=== PATIENT | male | born 1965 | race Hispanic/Latino ===

== ENCOUNTER 2023-02-23 23:08 | Inpatient (IN) | payer OTHER ==
[~2023-02-23] VITALS: Ht 182.9 cm; Wt 94.3 kg
[2023-02-23] MEDS ORDERED: NITROGLYCERIN 1GM OINT 1 INCH/1GM TD ONE (23:30)
[2023-02-23] MEDS ORDERED: SOLU-MEDROL 125MG VIAL IVP ONE (23:30)
[2023-02-23] MEDS ORDERED: ASPIRIN 325MG TAB PO ONE (23:30)
[2023-02-23] MEDS ORDERED: ENOXAPARIN SODIUM 100 MG/1 ML SQ ONE (23:30)
[2023-02-23] MEDS ORDERED: 0.9%NACL 1000ML 1,000 ML IV ONE (23:30)
[2023-02-23] MEDS ORDERED: IPRATROPIUM/ALBUTEROL SULFATE 3 ML SOLUTION IH ONE (23:30)
[2023-02-23 23:31] LABS: BASOPHILS % (AUTO) 0.3 % (0.0-5.0); HEMATOCRIT 48.1 % (42-54); LYMPHOCYTES % (AUTO) 6.5 % (21.0-51.0); MEAN CORPUSCULAR HEMOGLOBIN 30.8 pg (27.0-33.0); MEAN CORPUSCULAR HGB CONC 33.3 g/dL (32.0-36.0); MEAN CORPUSCULAR VOLUME 92.5 fL (79-99); MONOCYTES % (AUTO) 12.7 % (3.0-13.0); PLATELET COUNT (AUTO) 242 K/uL (130-400); RED CELL DISTRIBUTION WIDTH 12.9 % (11.0-15.5); WHITE BLOOD COUNT (AUTO) 9.3 K/uL (4.8-10.8)
[2023-02-23] MEDS ORDERED: SOLU-MEDROL 40MG VIAL ONE (23:46)
[2023-02-24 00:18] LABS: ALBUMIN 3.4 g/dL (3.5-5.0); CREATININE 0.8 mg/dL (0.5-1.5); POTASSIUM 4.3 mmol/L (3.5-5.1); TOTAL PROTEIN, SERUM 7.6 g/dL (6.0-8.3)
[2023-02-24 01:11] LABS: ABG BASE EXCESS 1.6 mmol/L (-2.0-3.0); ABG HCO3 30.6 mmol/L (21.0-28.0); ABG OXYGEN SATURATION 96.6 % (95.0-99.0); ABG PCO2 68 mmHg (35-48)
[2023-02-24] MEDS: SOLU-MEDROL 40MG VIAL IVP SCH ×3 (01:46→17:12)
[2023-02-24] MEDS: 0.9%NACL 1000ML 1,000 ML IV SCH ×2 (01:46→20:26)
[2023-02-24] MEDS ORDERED: MAGNESIUM 2GM PREMIX 50ML 50 ML IV PRN (02:00)
[2023-02-24] MEDS ORDERED: MORPHINE 4 MG SYG IV PRN (02:00)
[2023-02-24] MEDS ORDERED: ONDANSETRON 4MG INJ IV PRN (02:00)
[2023-02-24] MEDS ORDERED: POTASSIUM CHLORIDE 20MEQ/100ML 100 ML IV PRN (02:00)
[2023-02-24] MEDS ORDERED: ACETAMINOPHEN 325 MG TAB PO PRN ×3 (02:00→12:00)
[2023-02-24] MEDS ORDERED: MORPHINE 2 MG SYG IV PRN (02:00)
[2023-02-24] MEDS ORDERED: NICOTINE 21 MG/ 24 HR PATCH TD SCH (03:00)
[2023-02-24] MEDS: PHARMACY COMMUNICATION MISC SCH ×2 (03:30→09:30)
[2023-02-24 04:05] LABS: ABG BASE EXCESS 1.6 mmol/L (-2.0-3.0); ABG HCO3 30.4 mmol/L (21.0-28.0); ABG OXYGEN SATURATION 91.7 % (95.0-99.0); ABG PCO2 67 mmHg (35-48)
[2023-02-24] MEDS: DOXYCYCLINE 100MG+NS 250ML IV SCH ×2 (04:06→14:40)
[2023-02-24 04:30] VITALS: BP 146/84
[2023-02-24] MEDS ORDERED: PHARMACY COMMUNICATION MISC SCH (04:30)
[2023-02-24 06:56] LABS: HEMATOCRIT 47.1 % (42-54); LYMPHOCYTES % (AUTO) 4.9 % (21.0-51.0); MEAN CORPUSCULAR HEMOGLOBIN 31.2 pg (27.0-33.0); MEAN CORPUSCULAR HGB CONC 33.3 g/dL (32.0-36.0); MEAN CORPUSCULAR VOLUME 93.6 fL (79-99); MONOCYTES % (AUTO) 1.4 % (3.0-13.0); NEUTROPHILS % (AUTO) 93.1 % (40.0-77.0); PLATELET COUNT (AUTO) 227 K/uL (130-400); RED BLOOD CELL COUNT(AUTO) 5.03 MIL/uL (4.50-6.20); RED CELL DISTRIBUTION WIDTH 12.9 % (11.0-15.5); WHITE BLOOD COUNT (AUTO) 6.5 K/uL (4.8-10.8)
[2023-02-24 07:00] VITALS: BP 143/81
[2023-02-24 07:04] LABS: HEMOGLOBIN A1C 6.3 % (4.0-6.0)
[2023-02-24 07:12] LABS: CREATININE 0.9 mg/dL (0.5-1.5); MAGNESIUM 1.9 mg/dL (1.80-2.40); PHOSPHORUS 3.4 mg/dL (2.5-4.9); POTASSIUM 5.1 mmol/L (3.5-5.1)
[2023-02-24] MEDS: ALBUTEROL 0.083% 2.5 MG/3 ML INH IH SCH ×4 (07:27→23:17)
[2023-02-24] MEDS: FAMOTIDINE 20MG VIAL IV SCH (09:13)
[2023-02-24] MEDS: ENOXAPARIN SODIUM 40 MG/0.4 ML SYRINGE SQ SCH ×2 (09:14→18:55)
[2023-02-24 10:57] LABS: APPEARANCE,URINE CLEAR (CLEAR); BILIRUBIN,URINE NEGATIVE (NEGATIVE); COLOR,URINE LIGHT-YELLOW (YELLOW); GLUCOSE, URINE (UA) NEGATIVE (NEGATIVE); KETONES,URINE NEGATIVE (NEGATIVE); LEUKOCYTE ESTERASE ,URINE NEGATIVE Leu/uL (NEGATIVE); NITRATE,URINE NEGATIVE (NEGATIVE); OCCULT BLOOD,URINE NEGATIVE (NEGATIVE); PROTEIN,URINE 20 mg/dL (NEGATIVE); UROBILINOGEN,URINE 0.2 mg/dL (0.2-1.0)
[2023-02-24 11:00] VITALS: BP 127/75
[2023-02-24 11:04] LABS: AMPHET/METH SCREEN,URINE NEGATIVE (NEGATIVE); BARBITURATE SCREEN, URINE NEGATIVE (NEGATIVE); BENZODIAZEPINES SCREEN,URINE NEGATIVE (NEGATIVE); CANNABINOID SCREEN,URINE NEGATIVE (NEGATIVE); COCAINE SCREEN,URINE NEGATIVE (NEGATIVE); OPIATE SCREEN,URINE NEGATIVE (NEGATIVE); PHENCYCLIDINE SCREEN,URINE NEGATIVE (NEGATIVE)
[2023-02-24 11:10] LABS: SQUAMOUS EPITHELIAL CELL,UR RARE /HPF (0-2); WBC,URINE 0-1 /HPF (0-1)
[2023-02-24] MEDS: CEFTRIAXONE 1G VIAL IVPB SCH (12:12)
[2023-02-24] MEDS ORDERED: IOHEXOL-350 75 ML VIAL IV ONE (13:37)
[2023-02-24 16:00] VITALS: BP 141/70
[2023-02-24 19:15] VITALS: BP 130/70
[2023-02-24] MEDS: INSULIN HUMULIN R 100 UNIT/ML 3ML SQ SCH (20:31)
[2023-02-25 02:15] VITALS: BP 123/68
[2023-02-25] MEDS: DOXYCYCLINE 100MG+NS 250ML IV SCH ×2 (02:28→15:20)
[2023-02-25] MEDS: SOLU-MEDROL 40MG VIAL IVP SCH ×3 (02:28→17:15)
[2023-02-25 03:15] VITALS: BP 140/72
[2023-02-25 03:48] LABS: ABG BASE EXCESS 4.6 mmol/L (-2.0-3.0); ABG HCO3 34.1 mmol/L (21.0-28.0); ABG OXYGEN SATURATION 95.3 % (95.0-99.0); ABG PCO2 74 mmHg (35-48)
[2023-02-25 03:51] LABS: BASOPHILS % (AUTO) 0.2 % (0.0-5.0); HEMATOCRIT 45.8 % (42-54); LYMPHOCYTES % (AUTO) 7.3 % (21.0-51.0); MEAN CORPUSCULAR HEMOGLOBIN 31.1 pg (27.0-33.0); MEAN CORPUSCULAR HGB CONC 31.7 g/dL (32.0-36.0); MEAN CORPUSCULAR VOLUME 98.3 fL (79-99); MONOCYTES % (AUTO) 8.1 % (3.0-13.0); NEUTROPHILS % (AUTO) 83.4 % (40.0-77.0); PLATELET COUNT (AUTO) 223 K/uL (130-400); RED BLOOD CELL COUNT(AUTO) 4.66 MIL/uL (4.50-6.20); RED CELL DISTRIBUTION WIDTH 13.4 % (11.0-15.5); WHITE BLOOD COUNT (AUTO) 9.5 K/uL (4.8-10.8)
[2023-02-25 04:11] LABS: ALBUMIN 2.9 g/dL (3.5-5.0); CREATININE 0.8 mg/dL (0.5-1.5); POTASSIUM 5.5 mmol/L (3.5-5.1); TOTAL PROTEIN, SERUM 6.7 g/dL (6.0-8.3)
[2023-02-25] MEDS: INSULIN HUMULIN R 100 UNIT/ML 3ML SQ SCH ×4 (06:07→21:00)
[2023-02-25] MEDS: ALBUTEROL 0.083% 2.5 MG/3 ML INH IH SCH ×4 (06:37→23:11)
[2023-02-25 08:45] VITALS: BP 149/78
[2023-02-25] MEDS: FAMOTIDINE 20MG VIAL IV SCH (08:48)
[2023-02-25] MEDS: NICOTINE 21 MG/ 24 HR PATCH TD SCH (08:48)
[2023-02-25] MEDS ORDERED: ALBUTEROL 0.083% 2.5 MG/3 ML INH IH ONE (10:49)
[2023-02-25 11:28] VITALS: BP 130/84
[2023-02-25] MEDS: CEFTRIAXONE 1G VIAL IVPB SCH (11:31)
[2023-02-25 17:07] VITALS: BP 163/86
[2023-02-25 19:00] VITALS: BP 136/85
[2023-02-26] VITALS: BP 141/86
[2023-02-26] MEDS: SOLU-MEDROL 40MG VIAL IVP SCH ×3 (02:43→16:33)
[2023-02-26] MEDS: DOXYCYCLINE 100MG+NS 250ML IV SCH ×2 (02:43→15:15)
[2023-02-26 04:12] LABS: ABG BASE EXCESS 9.4 mmol/L (-2.0-3.0); ABG HCO3 39.8 mmol/L (21.0-28.0); ABG OXYGEN SATURATION 97.1 % (95.0-99.0); ABG PCO2 84 mmHg (35-48)
[2023-02-26 04:36] LABS: ALBUMIN 2.9 g/dL (3.5-5.0); CREATININE 0.8 mg/dL (0.5-1.5); POTASSIUM 5.7 mmol/L (3.5-5.1); TOTAL PROTEIN, SERUM 6.7 g/dL (6.0-8.3)
[2023-02-26 04:58] VITALS: BP 151/83
[2023-02-26] MEDS: INSULIN HUMULIN R 100 UNIT/ML 3ML SQ SCH ×4 (06:07→21:35)
[2023-02-26 06:14] LABS: BASOPHILS % (AUTO) 0.2 % (0.0-5.0); HEMATOCRIT 46.5 % (42-54); LYMPHOCYTES % (AUTO) 9.6 % (21.0-51.0); MEAN CORPUSCULAR HEMOGLOBIN 31.6 pg (27.0-33.0); MEAN CORPUSCULAR HGB CONC 31.8 g/dL (32.0-36.0); MEAN CORPUSCULAR VOLUME 99.1 fL (79-99); MONOCYTES % (AUTO) 8.2 % (3.0-13.0); NEUTROPHILS % (AUTO) 81.5 % (40.0-77.0); PLATELET COUNT (AUTO) 262 K/uL (130-400); RED BLOOD CELL COUNT(AUTO) 4.69 MIL/uL (4.50-6.20); RED CELL DISTRIBUTION WIDTH 13.7 % (11.0-15.5); WHITE BLOOD COUNT (AUTO) 13.2 K/uL (4.8-10.8)
[2023-02-26] MEDS: ALBUTEROL 0.083% 2.5 MG/3 ML INH IH SCH ×4 (06:36→23:35)
[2023-02-26] MEDS ORDERED: CALCIUM GLUC 1GM/10ML VIAL IV ONE (07:30)
[2023-02-26] MEDS ORDERED: KAYEXALATE 15GM/60ML PO ONE (07:30)
[2023-02-26 08:15] VITALS: BP 145/76
[2023-02-26] MEDS: FAMOTIDINE 20MG VIAL IV SCH (08:22)
[2023-02-26] MEDS: NICOTINE 21 MG/ 24 HR PATCH TD SCH (08:22)
[2023-02-26] MEDS: ENOXAPARIN SODIUM 40 MG/0.4 ML SYRINGE SQ SCH (08:23)
[2023-02-26] MEDS: CEFTRIAXONE 1G VIAL IVPB SCH (11:56)
[2023-02-26 12:01] VITALS: BP 122/74
[2023-02-26 16:28] VITALS: BP 119/68
[2023-02-26 19:40] VITALS: BP 130/69
[2023-02-27 00:30] VITALS: BP 127/70
[2023-02-27] MEDS: DOXYCYCLINE 100MG+NS 250ML IV SCH ×2 (02:54→18:37)
[2023-02-27] MEDS: SOLU-MEDROL 40MG VIAL IVP SCH ×2 (02:54→09:09)
[2023-02-27 03:38] LABS: HEMATOCRIT 44.5 % (42-54); MEAN CORPUSCULAR HEMOGLOBIN 31.4 pg (27.0-33.0); MEAN CORPUSCULAR VOLUME 101.1 fL (79-99); PLATELET COUNT (AUTO) 249 K/uL (130-400); RED CELL DISTRIBUTION WIDTH 13.7 % (11.0-15.5); WHITE BLOOD COUNT (AUTO) 14.5 K/uL (4.8-10.8)
[2023-02-27 03:47] LABS: ALBUMIN 2.7 g/dL (3.5-5.0); CREATININE 0.8 mg/dL (0.5-1.5); MAGNESIUM 2.1 mg/dL (1.80-2.40); POTASSIUM 4.5 mmol/L (3.5-5.1); TOTAL PROTEIN, SERUM 6.2 g/dL (6.0-8.3)
[2023-02-27 04:11] LABS: ABG BASE EXCESS 11.5 mmol/L (-2.0-3.0); ABG HCO3 41.6 mmol/L (21.0-28.0); ABG OXYGEN SATURATION 95.2 % (95.0-99.0); ABG PCO2 82 mmHg (35-48)
[2023-02-27 04:45] VITALS: BP 141/79
[2023-02-27] MEDS: INSULIN HUMULIN R 100 UNIT/ML 3ML SQ SCH ×4 (06:48→21:00)
[2023-02-27] MEDS: ALBUTEROL 0.083% 2.5 MG/3 ML INH IH SCH ×4 (06:52→23:25)
[2023-02-27 08:14] VITALS: BP 142/81
[2023-02-27] MEDS: NICOTINE 21 MG/ 24 HR PATCH TD SCH (09:09)
[2023-02-27] MEDS: FAMOTIDINE 20MG VIAL IV SCH (09:10)
[2023-02-27] MEDS: ENOXAPARIN SODIUM 40 MG/0.4 ML SYRINGE SQ SCH (09:10)
[2023-02-27 12:46] VITALS: BP 143/83
[2023-02-27] MEDS: CEFTRIAXONE 1G VIAL IVPB SCH (13:30)
[2023-02-27 16:00] VITALS: BP 154/86
[2023-02-27 20:00] VITALS: BP 166/85
[2023-02-27] MEDS ORDERED: SOLU-MEDROL 40MG VIAL IVP SCH (21:00)
[2023-02-28] VITALS: BP 156/76
[2023-02-28] MEDS: DOXYCYCLINE 100MG+NS 250ML IV SCH (03:54)
[2023-02-28 04:00] VITALS: BP 163/82
[2023-02-28 04:18] LABS: HEMATOCRIT 45.1 % (42-54); MEAN CORPUSCULAR HEMOGLOBIN 30.9 pg (27.0-33.0); MEAN CORPUSCULAR HGB CONC 31.3 g/dL (32.0-36.0); MEAN CORPUSCULAR VOLUME 98.7 fL (79-99); RED BLOOD CELL COUNT(AUTO) 4.57 MIL/uL (4.50-6.20); RED CELL DISTRIBUTION WIDTH 13.5 % (11.0-15.5); WHITE BLOOD COUNT (AUTO) 13.1 K/uL (4.8-10.8)
[2023-02-28 04:32] LABS: ALBUMIN 2.6 g/dL (3.5-5.0); CREATININE 0.8 mg/dL (0.5-1.5); POTASSIUM 4.6 mmol/L (3.5-5.1)
[2023-02-28] MEDS: ALBUTEROL 0.083% 2.5 MG/3 ML INH IH SCH (06:43)
[2023-02-28 08:00] VITALS: BP 146/80
== END 2023-02-28 09:20 | disposition left against medical advice (07) | DRG 193 ==
LOC: EDH 23:08 → EDHIP 23:09 → 2AH 02-24 04:22 → 4BH 02-27 16:00
PROVIDERS: ADMIT Internal Medicine; ATTEND Internal Medicine
PROC: 5A09357 Assistance with Respiratory Ventilation, Less than 24 Consecutive Hours, Continuous Positive Airway Pressure (ICD-10-PCS; principal; 2023-02-24)
PROC: 5A09357 Assistance with Respiratory Ventilation, Less than 24 Consecutive Hours, Continuous Positive Airway Pressure (ICD-10-PCS; 2023-02-25)
PROC: 5A09357 Assistance with Respiratory Ventilation, Less than 24 Consecutive Hours, Continuous Positive Airway Pressure (ICD-10-PCS; 2023-02-26)
PROC: 5A09357 Assistance with Respiratory Ventilation, Less than 24 Consecutive Hours, Continuous Positive Airway Pressure (ICD-10-PCS; 2023-02-27)
DX: J18.9 Pneumonia, unspecified organism (principal); J96.01 Acute respiratory failure with hypoxia; J96.02 Acute respiratory failure with hypercapnia; Z20.822 Contact with and (suspected) exposure to COVID-19; J44.0 Chronic obstructive pulmonary disease with (acute) lower respiratory infection; J44.1 Chronic obstructive pulmonary disease with (acute) exacerbation; E87.29 Other acidosis; E11.51 Type 2 diabetes mellitus with diabetic peripheral angiopathy without gangrene; J84.10 Pulmonary fibrosis, unspecified; E11.65 Type 2 diabetes mellitus with hyperglycemia; F17.210 Nicotine dependence, cigarettes, uncomplicated; Z53.29 Procedure and treatment not carried out because of patient's decision for other reasons; Z88.0 Allergy status to penicillin
CPT/HCPCS: 36415; 36600; 71045; 71250; 71270; 80048; 80053; 80305; 81001; 82435; 82550; 82803; 82947; 82948; 83036; 83605; 83735; 83874; 84100; 84132; 84295; 84484; 85018; 85025; 85027; 85378; 87040; 87420; 87426; 87804; 87880; 93005; 93306; 93970; 94640; 94660; 94664; 94667; 94668; 94760; G0378; J0610; J0696; J1650; J1815; J2920; J3490; J7030; Q9967